=== PATIENT | male | born 1935 | race Caucasian/White ===

== ENCOUNTER → 2016-04-29 | Outpatient (CLI) | payer OTHER ==
[~2016-04-29] VITALS: Ht 175.3 cm; Wt 91.3 kg
[~2016-04-29] MED LIST: AMLODIPINE BESYL5 M1 PO; AMLODIPINE BESYL5 MG PO; ATORVASTATIN CA40 MG PO; BAYER CHEWABLE81 MG PO; BENAZEPRIL HCL40 MG PO; BREO ELLIPTA 11 EACH; CELEXA20 MG PO; CLOPIDOGREL75 MG PO; IRON325 M1 PO; MIRALAX255 GM; PANTOPRAZOLE SO40 M1 PO; VITAMIN D1000 UNIT PO
--- NOTE | ~2016-04-29 | HPC ---
[facility] [address] [place] [address] PAIN MANAGEMENT CONSULTATION Name: TED FUNEZ JR Room #: REG FLORINA Inna.#: [id number] Admission: 04/29/16 Attend Phys: Dawson Arana DO Discharge: Date of : 33 Report #: [id number] THIS REPORT FOR: //name// CC: Amanda Arana DATE OF SERVICE: 04/29/2016 The patient is a pleasant 80-year-old gentleman, prior seen in consultation 04/15/2016, diagnosed with symptomatic lumbar radiculopathy, component of SI joint dysfunction, did epidural injection at that time with excellent improvement of pain. After about 48 hours, the patient notes pain was nearly 90% gone. 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 Pain has started to recur. He rates the pain about 4-5 on a 0-10 visual analog scale, primarily low back, right hip and leg. PHYSICAL EXAMINATION: Relatively unchanged from presentation, 80-year-old gentleman. Vital signs stable as noted on the EMR. Pain across the low back, right hip and leg, moderately antalgic gait. ASSESSMENT: Symptomatic lumbar radiculopathy. RECOMMENDATIONS: Repeat epidural injection under fluoroscopy today. Follow up in 3-4 weeks for reevaluation, cancel if doing well. Consider SI joint injections if indicated clinically versus trigger point injections for myofascial pain. PROCEDURE: Lumbar epidural injection under fluoroscopy. PROCEDURE NOTE: After both written and informed consent to include risk of spinal cord damage, increased pain, weakness and dural puncture, the patient was taken to the fluoroscopy suite, placed in the prone position. After sterile prep and drape, a skin wheal with lidocaine was raised. A 22-gauge epidural Tuohy needle was inserted in the midline at L3-L4 with good loss to resistance. Negative aspiration for cerebrospinal fluid or blood was noted. Then 1 mL of Omnipaque under biplanar fluoroscopy showed good spread within the epidural space. This was followed with 80 mg of triamcinolone plus 1 mL of 1.5% preservative-free Xylocaine, 0.5 mL Xylocaine was then injected to flush the needle; it was removed. The patient was monitored for an appropriate period of time and discharged in good and stable condition. <ELECTRONICALLY SIGNED> By: Dawson Arana DO 04/29/16 1408 1153 1205 Dawson Arana DO /nt
[2016-04-29 09:44] VITALS: BP 172/78
== END | disposition home or self-care (01) ==
LOC: PAIN 07:09
DX: M54.16 Radiculopathy, lumbar region (principal); Z87.891 Personal history of nicotine dependence

== ENCOUNTER → 2016-05-27 | Outpatient (CLI) | payer OTHER ==
[~2016-05-27] VITALS: Ht 175.3 cm; Wt 90.7 kg
[~2016-05-27] MED LIST changes: +ALEVE220 MG PO
--- NOTE | ~2016-05-27 | HPC ---
[facility] [address] [place] [address] PAIN MANAGEMENT CONSULTATION Name: TED FUNEZ JR Room #: REG FLORINA M.Joseph.#: [id number] Admission: 05/27/16 Attend Phys: Dawson Arana DO Discharge: Date of : 33 Report #: [id number] THIS REPORT FOR: //name// CC: Amanda Arana The patient is a very pleasant 80-year-old gentleman. He had 2 lumbar epidural injections with significant improvement of baseline pain, injections 04/15/2016 and 04/29/2016. The patient notes, he is doing well with some 80% relief, when last week he fell on stairs. States he is on the second floor, simply lost track, looked to his right, stepped forward, expecting to step on the floor, but fell 2 flights. It did cause significant ecchymosis about the right eye with a small laceration on his zygomatic arch. Fortunately, extraocular muscles all appear to be intact. No visual acuity changes. No loss of consciousness. This did, however, significantly exacerbate lumbar radicular pain, low back, right hip, and leg. PHYSICAL EXAMINATION: Shows an 80-year-old gentleman, BMI is 29.5 kilograms per meter squared. Vital signs are stable as noted in the EMR. Again, some ecchymosis about the right eye, but extraocular muscles are intact. Small nicely healing lesion across the zygomatic arch. Rises from the chair using armrest, modestly antalgic gait, positive straight leg raise on the right. ASSESSMENT: Symptomatic lumbar radiculopathy by clinical exam, exacerbation of radicular symptoms. RECOMMENDATION: Repeat epidural injection under fluoroscopy today. Follow up simply as needed. ASSESSMENT: Symptomatic lumbar radiculopathy. PROCEDURE: Lumbar epidural injection under fluoroscopy. DESCRIPTION OF PROCEDURE: After both written and informed consent to include risk of spinal cord damage, increased pain, weakness and dural puncture, the patient was taken to the fluoroscopy suite, placed in the prone position. After sterile prep and drape, a skin wheal with lidocaine was raised. A 22-gauge epidural Tuohy needle was inserted in the midline at L3-L4 with good loss to resistance. Negative aspiration for cerebrospinal fluid or blood was noted. Then 1 mL of Omnipaque under biplanar fluoroscopy showed good spread within the epidural space. This was followed with 80 mg of triamcinolone plus 1 mL of 1.5% preservative-free Xylocaine, 0.5 mL Xylocaine was then injected to flush the [address] [address] PAIN MANAGEMENT CONSULTATION Name: TED FUNEZ [id number] Admission: 05/27/16 Attend Phys: Dawson Arana DO Discharge: Date of : 33 Report #: [id number] needle; it was removed. The patient was monitored for an appropriate period of time and discharged in good and stable condition. <ELECTRONICALLY SIGNED> By: Dawson Arana DO 05/28/16 1138 1227 1959 Dawson Arana DO /nt
[2016-05-27 10:01] VITALS: BP 155/67
== END | disposition home or self-care (01) ==
LOC: PAIN 06:54
DX: M54.16 Radiculopathy, lumbar region (principal)

== ENCOUNTER → 2016-08-12 | Outpatient (CLI) | payer OTHER ==
[~2016-08-12] VITALS: Ht 175.3 cm; Wt 89.8 kg
--- NOTE | ~2016-08-12 | S ---
[facility] [place] [address] [place] [address] SURGICAL PATH RPT PROCEDURE Name: TED FUNEZ JR Room #: REG FLORINA Ochoa.#: [id number] Admission: 08/12/16 Date of : 33 Discharge: Report #: [id number] Path Case #: [id number] PATHOLOGY REPORT COLLECTION DATE: 08/12/2016 RECEIVED DATE: 08/13/2016 SUBMITTING PHYS: Dr. Anibal Alvarado OTHER PHYS: Dr Amanda Jung SPECIMEN(S) RECEIVED: A.Bx of small bowel polyp B.Bx of polyp at proximal jejunum * * * * * * * * * * * * FINAL DIAGNOSIS: A. Polyp, small bowel, endoscopic biopsy: - No diagnostic abnormalities identified. - Polypoid mucosa with reactive changes. B. Polyp, proximal jejunum, endoscopic biopsy: - Minute tubular adenoma. - Negative for high-grade dysplasia. - Background small bowel mucosa showing no significant diagnostic abnormalities. COMMENT: Co-review (B): Dr. Mallorie Lyle (IUV:mgr; d/t: 08/16/16) PATHOLOGIST: Ileana Downye M.D. REPORT ELECTRONICALLY SIGNED BY: Ileana Downey M.D. DATE/TIME: 08/16/2016 17:07 * * * * * * * * * * * * GROSS PATHOLOGY: A. Received in formalin labeled "Ted Funez Jr, bx of small bowel polyp," is a segment of collier soft tissue measuring 0.6 x 0.2 x 0.2 cm in maximum dimension. The specimen is submitted entirely in cassette A1. B. Received in formalin labeled "Ted Funez Jr, polyp at proximal jejunum," is a segment of collier soft tissue measuring 0.4 x 0.3 x 0.2 cm in maximum dimension. The specimen is submitted entirely in cassette B1. (NATALIE; 08/13/2016) CLINICAL HISTORY: [facility] [place] [address] SURGICAL PATH RPT PROCEDURE Name: TED FUNEZ JR Room #: REG [facility].#: [id number] Admission: 08/12/16 Date of : 33 Discharge: Report #: [id number] Path Case #: [id number] Anemia, small bowel polyp INITIAL CPT CODE(S): A; 06218 B; 00634 Professional services [address] by [facility] [address], [place] [address] Technical services performed by [facility] at [address] [place] [address], [facility] [address], [place] [address]. [facility] [address] [address] PHONE: [phone] DIRECTOR: Bruno Vasquez M.D. * * * END OF REPORT * * *
--- NOTE | ~2016-08-12 | P ---
[facility] [place] [place] [address] PROCEDURE REPORT Name: TED FUNEZ JR Room #: REG [facility]#: [id number] Admission: 08/12/16 Attend Phys: Anibal Alvarado MD Discharge: Date of : 33 Report #: [id number] THIS REPORT FOR: //name// CC: Amanda Alvarado DATE OF SERVICE: 08/12/2016 BRIEF HISTORY: The patient is an 80-year-old male with iron deficiency anemia. He also had a recent small bowel study, which revealed questionable small bowel polyps versus lymphangiectasias. He presents for further evaluation of small bowel for the abnormalities as well as GI bleeding. PREOPERATIVE DIAGNOSES: 1. Anemia. 2. Small bowel polyps. POSTOPERATIVE DIAGNOSES: 1. Diminutive polyp, proximal jejunum. 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 3. Diffuse gastritis. MEDICATIONS: Deep sedation with propofol per anesthesia. SPECIMEN: 1. Biopsy of the lymphangiectasias, small bowel. 2. Jejunal polyp. ESTIMATED BLOOD LOSS: 3 mL. PROCEDURE: Small bowel endoscopy with biopsy. FINDINGS: Prior to propofol sedation, procedure of small bowel endoscopy discussed with the patient as well as potential risks and its complications. He indicates he understands and desires to proceed. DESCRIPTION OF PROCEDURE: With the patient in left lateral decubitus position, the MUV Interactive video pediatric colonoscope was introduced in the oropharynx and advanced under direct vision without difficulty. The squamocolumnar junction was identified and noted to be unremarkable. Scope was advanced in the stomach, which was examined on end view as well as retroflexed views. There was diffuse gastritis. No ulcers were seen. There was no blood in the stomach. Gastric AVMs were not seen in the stomach. There was no blood in the stomach. The pylorus, duodenal bulb and postbulbar duodenal sweep were inspected and noted to be within normal limits. No bleeding lesions, polyps or AVMs were seen. Then, [facility] [address] [place] [address] PROCEDURE REPORT Name: TED FUNEZ Room #: REG [facility].#: [id number] Admission: 08/12/16 Attend Phys: Anibal Alvarado MD Discharge: Date of : 33 Report #: [id number] we passed the scope deeply into the small bowel. The entire length of the scope was passed deep into the jejunum. At that point, the scope was slowly withdrawn and careful circumferential views were obtained. The prep was excellent. The mucosa was within normal limits, normal vascular pattern, normal light reflex. As we withdrew the scope, several multiple small, typical lymphangiectasias were seen. These were flat lesions and not raised. Biopsies were obtained in one of the lesions. In addition, as we withdrew the scope in the very proximal jejunum, a diminutive polyp was seen and completely removed with biopsy. Scope was further withdrawn and no additional abnormalities were seen. Scope was withdrawn. The patient tolerated the procedure well. CONDITION OF THE PATIENT UPON DISCHARGE: Following procedure, the patient drowsy and he will be discharged home when fully ambulatory. INSTRUCTIONS TO THE PATIENT AND FAMILY AT THE TIME OF DISCHARGE: Small bowel capsule study revealed what appeared to be polypoid lesions of the small bowel. He does have multiple small lesions consistent with lymphangiectasias. This is likely what was seen on the M2 capsule study. However, as far as anemia and bleeding, I did not see any bleeding lesions or AVMs. At this point in time, we will him continue to take iron. If constipation, he probably should use MiraLax. Continue to monitor hemoglobin. It is noted he has had previous colonoscopy inside an AVM treated. If anemia continued to be problem, repeating his colonoscopy may be helpful. Also, if he does not respond to oral iron, he may require IV iron infusions. In the half-way if anemia continued to be problem, repeating the capsule study may be a consideration. If we can identify lesion in the distal small bowel, a double lumen endoscopy at another facility may be indicated. He will return to Dr. Amanda Jung. We will obtain labs for review and make further recommendations after reviewing his hemoglobin. <ELECTRONICALLY SIGNED> By: Anibal Alvarado MD 08/13/16 0820 1113 1259 Anibal Alvarado MD /nt
== END | disposition home or self-care (01) ==
LOC: GI 09:23
DX: K63.89 Other specified diseases of intestine (principal); K29.60 Other gastritis without bleeding; I89.0 Lymphedema, not elsewhere classified; I10 Essential (primary) hypertension; E78.5 Hyperlipidemia, unspecified; K21.9 Gastro-esophageal reflux disease without esophagitis; Z98.41 Cataract extraction status, right eye; Z95.5 Presence of coronary angioplasty implant and graft; Z98.42 Cataract extraction status, left eye; Z87.891 Personal history of nicotine dependence; Z96.1 Presence of intraocular lens; Z98.890 Other specified postprocedural states; Z88.8 Allergy status to other drugs, medicaments and biological substances; Z91.048 Other nonmedicinal substance allergy status; Z79.82 Long term (current) use of aspirin; Z79.899 Other long term (current) drug therapy
CPT/HCPCS: 62110; 62900